=== PATIENT | male | born 1985 | race Asian ===

== ENCOUNTER 2019-07-09 15:09 | Emergency (ER) | payer SELFPAY ==
[~2019-07-09] VITALS: Ht 165.1 cm; Wt 81.6 kg
[2019-07-09 15:20] VITALS: Ht 165.1 cm; Wt 81.6 kg
[2019-07-09 19:41] VITALS: BP 128/69
== END 2019-07-09 19:41 | disposition home or self-care (01) ==
LOC: ED 15:09
DX: S51.851A Open bite of right forearm, initial encounter (principal); W54.0XXA Bitten by dog, initial encounter; Y93.89 Activity, other specified; Y92.89 Other specified places as the place of occurrence of the external cause; Y99.8 Other external cause status
CPT/HCPCS: J2001; J3010